=== PATIENT | female | born 1930 | race Caucasian/White ===

== ENCOUNTER 2017-05-09 00:21 | Emergency (ER) | payer MEDICARE ==
[~2017-05-09] VITALS: Ht 157.5 cm; Wt 50.0 kg
[~2017-05-09 00:21] MED LIST: ZOCO40TA PO
[2017-05-09] MEDS ORDERED: IOHEXOL 350 MG/ML 10 ML VIAL (for RAD DIAG) IVCONTRAST ONE (00:22)
[2017-05-09 00:26] VITALS: BP 180/71; PULSE 84; RESP 22; TEMP 97.8; O2SAT 99
[2017-05-09] MEDS ORDERED: GABA600T PO (00:32)
[2017-05-09] MEDS ORDERED: SIMV40TA PO (00:32)
[2017-05-09] MEDS ORDERED: SODIUM CHLOR 0.9% 1000 ML INJ 1,000 ML IV SCH (01:19)
[2017-05-09 01:23] VITALS: RESP 16
--- NOTE | 2017-05-09 01:24 | PD ---
HPI Chief Complaint: Abdominal Pain Time Seen by Provider: 00:42 Travel History International Travel<30 days: No Contact w/Intl Traveler<30days: No Traveled to known affect area: No History of Present Illness HPI 87-year-old female complains of abdominal pain with nausea vomiting. Patient states that she has intermittent low abdominal pain including left lower quadrant abdominal pain for the past 3 months. Patient states the pain is worse tonight. Patient states the pain is sharp pain localized to lower abdomen especially left lower quadrant of the abdomen. Patient denies any pain radiation. Patient states that she has intermittent nausea vomiting with the pain. Patient denies any diarrhea. Patient denies any dysuria or frequency. Patient denies any vaginal discharge or bleeding. Patient denies any fever chills. Patient status post hysterectomy and cholecystectomy 30 years ago. On a Scale of 1-10 the pain is an 8. PFSH Past Medical History Diminished Hearing: No Tetanus Vaccination: Unknown Influenza Vaccination: Yes ?: Not : 7 Para: 7 Past Surgical History Cholecystectomy: Yes Hysterectomy: Yes (RAMÓN. OOPHERECTOMY) Other Surgery: Yes (BREAST CANCER) Social History Alcohol Use: No Tobacco Use: No Substance Use: No Allergies-Medications (Allergen,Severity, Reaction): Coded Allergies: No Known Allergies (Verified Adverse Reaction, Unknown, 05/09/17) Reported Meds & Prescriptions Reported Meds & Active Scripts Active Reported Simvastatin 40 Mg Tab 40 Mg PO HS Gabapentin 600 Mg Tab 600 Mg PO HS Review of Systems General / Constitutional: No: Fever Eyes: No: Visual changes HENT: No: Headaches Cardiovascular: No: Chest Pain or Discomfort Respiratory: No: Shortness of Breath Gastrointestinal: Positive: Nausea, Vomiting, Abdominal Pain Genitourinary: No: Dysuria Musculoskeletal: No: Pain Skin: No Rash Neurologic: No: Weakness Psychiatric: No: Depression Endocrine: No: Polydipsia Hematologic/Lymphatic: No: Easy Bruising Physical Exam Narrative GENERAL: Well-nourished, well-developed patient. SKIN: Focused skin assessment warm/dry. HEAD: Normocephalic. EYES: No scleral icterus. No injection or drainage. NECK: Supple, trachea midline. No JVD or lymphadenopathy. CARDIOVASCULAR: Regular rate and rhythm without murmurs, gallops, or rubs. RESPIRATORY: Breath sounds equal bilaterally. No accessory muscle use. GASTROINTESTINAL: Abdomen soft, nondistended. Patient has moderate tenderness on palpation left lower quadrant of the abdomen. No rebound tenderness. No mass. MUSCULOSKELETAL: No cyanosis, or edema. BACK: Nontender without obvious deformity. No CVA tenderness. Neurologic exam normal. Data Data Last Documented VS Vital Signs Date Time Temp Pulse Resp B/P (MAP) Pulse Ox O2 Delivery O2 Flow Rate FiO2 05/09/17 03:15 92 16 116/58 (77) 95 Room Air 05/09/17 00:26 97.8 Orders Orders Complete Blood Count With Diff (05/09/17 01:19) Comprehensive Metabolic Panel (05/09/17 01:19) Lipase (05/09/17:19) Prothrombin Time / Inr (Pt) (05/09/17:19) Act Partial Throm Time (Ptt) (05/09/17:19) Urinalysis - C+S If Indicated (05/09/17:19) Ct Abd/Pel W Iv Contrast(Rout) (05/09/17 01:19) Iv Access Insert/Monitor (05/09/17:19) Ecg Monitoring (05/09/17:19) Oximetry (05/09/17 01:19) Ondansetron Inj (Zofran Inj) (05/09/17 01:30) Sodium Chlor 0.9% 1000 Ml Inj (Ns 1000 M (05/09/17 01:19) Sodium Chloride 0.9% Flush (Ns Flush) (05/09/17 01:30) Famotidine Inj (Pepcid Inj) (05/09/17 01:30) Morphine Inj (Morphine Inj) (05/09/17 01:30) Iohexol 350 Inj (Omnipaque 350 Inj) (05/09/17 00:22) Labs Laboratory Tests Test 05/09/17 01:30 05/09/17 03:25 White Blood Count 16.9 TH/MM3 Red Blood Count 4.76 MIL/MM3 Hemoglobin 13.2 GM/DL Hematocrit 40.5 % Mean Corpuscular Volume 85.2 FL Mean Corpuscular Hemoglobin 27.7 PG Mean Corpuscular Hemoglobin Concent 32.5 % Red Cell Distribution Width 13.6 % Platelet Count 280 TH/MM3 Mean Platelet Volume 7.8 FL Neutrophils (%) (Auto) 90.1 % Lymphocytes (%) (Auto) 5.7 % Monocytes (%) (Auto) 3.5 % Eosinophils (%) (Auto) 0.1 % Basophils (%) (Auto) 0.6 % Neutrophils # (Auto) 15.2 TH/MM3 Lymphocytes # (Auto) 1.0 TH/MM3 Monocytes # (Auto) 0.6 TH/MM3 Eosinophils # (Auto) 0.0 TH/MM3 Basophils # (Auto) 0.1 TH/MM3 CBC Comment DIFF FINAL Differential Comment Prothrombin Time 10.0 SEC Prothromb Time International Ratio 1.0 RATIO Activated Partial Thromboplast Time 21.2 SEC Blood Urea Nitrogen 20 MG/DL Creatinine 1.05 MG/DL Random Glucose 200 MG/DL Total Protein 7.4 GM/DL Albumin 4.2 GM/DL Calcium Level 9.4 MG/DL Alkaline Phosphatase 61 U/L Aspartate Amino Transf (AST/SGOT) 27 U/L Alanine Aminotransferase (ALT/SGPT) 25 U/L Total Bilirubin 0.5 MG/DL Sodium Level 142 MEQ/L Potassium Level 4.2 MEQ/L Chloride Level 108 MEQ/L Carbon Dioxide Level 25.7 MEQ/L Anion Gap 8 MEQ/L Estimat Glomerular Filtration Rate 50 ML/MIN Lipase 176 U/L Urine Color YELLOW Urine Turbidity CLEAR Urine pH 6.0 Urine Specific [place] GREATER THAN 1.050 Urine Protein TRACE mg/dL Urine Glucose (UA) NEG mg/dL Urine Ketones 10 mg/dL Urine Occult Blood NEG Urine Nitrite NEG Urine Bilirubin NEG Urine Urobilinogen 2.0 MG/DL Urine Leukocyte Esterase NEG Urine RBC 1 /hpf Urine WBC LESS THAN 1 /hpf Urine Hyaline Casts 1 /lpf Microscopic Urinalysis Comment CULT NOT INDICATED MDM Medical Decision Making Medical Screen Exam Complete: Yes Emergency Medical Condition: Yes Interpretation(s) 3:13 AM. Last Impressions Abdomen/Pelvis CT 05/09/17 0119 Signed Impressions: Service Date/Time: Tuesday, May 09, 2017 02:29 - CONCLUSION: 1. No acute abnormality. 2. Colonic diverticulosis. 3. Prior cholecystectomy. 4. 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 The portal vein is patent. This suggests underlying portal hypertension. Nick Whitmore Jr., MD 3:14 AM. CBC WBC 16.9. 90 neutrophil. BUN 20. Creatinine 1.05. GFR 50. Glucose 200. 4:06 AM. UA is negative. Differential Diagnosis Differential diagnosis including UTI, pyelonephritis, nephrolithiasis, colitis, musculoskeletal. Narrative Course 87-year-old female with left lower quadrant abdominal pain. No obvious source of abdominal pain. Patient has elevated white count. Could be early colitis. Levaquin 750 mg by mouth given. Diagnosis Primary Impression: Abdominal pain Qualified Codes: R10.30 - Lower abdominal pain, unspecified Patient Instructions: General Instructions Additional Instructions: Cipro and Flagyl as directed. Tylenol for pain. Follow-up with personal physician. Return if worse. Med/Other Pt SpecificInfo: Prescription(s) given Scripts Metronidazole (Flagyl) 500 Mg Tab 500 MG PO TID for Infection, #30 TAB 0 Refills Prov: Onesimo Hernandez MD 05/09/17 Ciprofloxacin (Cipro) 500 Mg Tab 500 MG PO BID for Infection, #20 TAB 0 Refills Prov: Onesimo Hernandez MD 05/09/17 Disposition: 01 DISCHARGE HOME Condition: Stable Onesimo Hernandez MD May 09, 2017 01:24
[2017-05-09] MEDS ORDERED: ONDANSETRON HCL 4 MG/2 ML VIAL IVP ONE (01:30)
[2017-05-09] MEDS ORDERED: FAMOTIDINE 20 MG/2 ML VIAL IV PUSH ONE (01:30)
[2017-05-09] MEDS ORDERED: SODIUM CHLORIDE 0.9% FLUSH 10 ML FLUSH IV FLUSH PRN (01:30)
[2017-05-09] MEDS ORDERED: MORPHINE SULFATE 2 MG/ML INJ IV PUSH ONE (01:30)
[2017-05-09 01:37] LABS: AUTOMATED NEUTROPHIL # 15.2 TH/MM3 (1.8-7.7); BASOPHIL # 0.1 TH/MM3 (0-0.2); BASOPHIL % 0.6 % (0.0-2.0); EOSINOPHIL % 0.1 % (0.0-4.0); HEMATOCRIT 40.5 % (35.0-46.0); HEMOGLOBIN 13.2 GM/DL (11.6-15.3); LYMPH % 5.7 % (9.0-44.0); MEAN CELL VOLUME 85.2 FL (80.0-100.0); MEAN CORPUSCULAR HEMOGLOBIN 27.7 PG (27.0-34.0); MEAN CORPUSCULAR HGB CONC 32.5 % (32.0-36.0); MEAN PLATELET VOLUME 7.8 FL (7.0-11.0); MONO % 3.5 % (0.0-8.0); MONOCYTE # 0.6 TH/MM3 (0-0.9); NEUT % 90.1 % (16.0-70.0); PLATELET COUNT 280 TH/MM3 (150-450); RED BLOOD COUNT 4.76 MIL/MM3 (4.00-5.30); RED CELL DISTRIBUTION WIDTH 13.6 % (11.6-17.2); WHITE BLOOD COUNT 16.9 TH/MM3 (4.0-11.0)
[2017-05-09 01:55] LABS: ALKALINE PHOSPHATASE 61 U/L (45-117); TOTAL BILIRUBIN ADULT 0.5 MG/DL (0.2-1.0); TOTAL PROTEIN 7.4 GM/DL (6.4-8.2)
[2017-05-09 02:08] LABS: ALBUMIN 4.2 GM/DL (3.4-5.0); ALT (GPT) 25 U/L (10-53); AST (GOT) 27 U/L (15-37); BICARBONATE 25.7 MEQ/L (21.0-32.0); BLOOD UREA NITROGEN 20 MG/DL (7-18); CALCIUM 9.4 MG/DL (8.5-10.1); CHLORIDE 108 MEQ/L (98-107); CREATININE 1.05 MG/DL (0.50-1.00); GLOMERULAR FILTRATION RATE 50 ML/MIN (>89); GLUCOSE,RANDOM 200 MG/DL (74-106); LIPASE 176 U/L (73-393); SODIUM (NA) 142 MEQ/L (136-145)
--- NOTE | 2017-05-09 03:02 | RADRPT ---
EXAM DATE/TIME: 05/09/2017 02:29 [facility] COMPARISON: No previous studies available for comparison. INDICATIONS : Left lower qaudrant pain. IV CONTRAST: 80 cc Omnipaque 350 (iohexol) IV ORAL CONTRAST: No oral contrast ingested. RADIATION DOSE: 11.60 CTDIvol (mGy) MEDICAL HISTORY : Carcinoma, breast. SURGICAL HISTORY : Hysterectomy. Cholecystectomy. ENCOUNTER: Initial ACUITY: 1 day PAIN SCALE: 7/10 LOCATION: Left lower quadrant TECHNIQUE: Volumetric scanning of the abdomen and pelvis was performed. Using automated exposure control and ad justment of the mA and/or kV according to patient size, radiation dose was kept as low as reasonably achievable to obtain optimal diagnostic quality images. DICOM format image data is available electro nically for review and comparison. FINDINGS: LOWER LUNGS: The visualized lower lungs are clear. LIVER: Homogeneous density without lesion. There is no dilation of the biliary tree. Prior cholecystectomy. SPLEEN: Normal size without lesion. PANCREAS: Within normal limits. KIDNEYS: Normal in size and shape. There is no mass, stone or hydronephrosis. Varicosities are seen on the le ft consistent with a spleno renal shunt. ADRENAL GLANDS: Within normal limits. VASCULAR: There is no aortic aneurysm. BOWEL/MESENTERY: The stomach, small bowel, and colon demonstrate no acute abnormality. There is no free intraperitone al air or fluid. Scattered colonic diverticuli most pronounced within the sigmoid. No acute inflammat ion. ABDOMINAL WALL: Within normal limits. RETROPERITONEUM: There is no lymphadenopathy. BLADDER: No wall thickening or mass. REPRODUCTIVE: Within normal limits. INGUINAL: There is no lymphadenopathy or hernia. MUSCULOSKELETAL: Within normal limits for patient age. CONCLUSION: 1. No acute abnormality. 2. Colonic diverticulosis. 3. Prior cholecystectomy. 4. 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 The po rtal vein is patent. This suggests underlying portal hypertension. Nick Whitmore Jr., MD on May 09, 2017 at 2:56 Board Certified Radiologist. This report was verified electronically.
[2017-05-09 03:15] VITALS: BP 116/58; PULSE 92; RESP 16; O2SAT 95
[2017-05-09 03:38] LABS: BILIRUBIN, URINE NEG (NEG); BLOOD, URINE NEG (NEG); GLUCOSE,URINE NEG (NEG); HYALINE CAST, URINE 1 /lpf (RARE); KETONE, URINE 10 mg/dL (NEG); NITRITE,URINE NEG (NEG); URINE COLOR YELLOW (YELLW/STRAW); URINE LEUKOCYTE ESTERASE NEG (NEG)
[2017-05-09] MEDS ORDERED: CIPR-9 PO (04:15)
[2017-05-09] MEDS ORDERED: METR-1 PO (04:15)
[2017-05-09] MEDS ORDERED: LEVOFLOXACIN 750 MG TAB PO ONE (04:30)
== END 2017-05-09 04:50 | disposition home or self-care (01) ==
LOC: NEPC 00:21
DX: R10.32 Left lower quadrant pain (principal); K57.30 Diverticulosis of large intestine without perforation or abscess without bleeding
CPT/HCPCS: 74177; 80053; 81001; 83690; 85025; 85610; 85730; 96374; 96375; 99285; J2270; J2405; J7030; Q9967